=== PATIENT | female | born 1995 | race African-American/Black ===

== ENCOUNTER 2017-07-27 23:58 | Emergency (ER) | payer BC ==
[~2017-07-27] VITALS: Ht 152.4 cm; Wt 50.8 kg
[~2017-07-27 23:58] MED LIST: ACET325T96 PO
[2017-07-28 00:03] VITALS: Ht 152.4 cm; Wt 50.8 kg
[2017-07-28] MEDS ORDERED: SODIUM CHLORIDE 0.9% 1000ML 1,000 ML IV STA ×2 (00:23)
[2017-07-28 00:52] LABS: BASO % 0.1 %; BASO ABS # 0.01 K/uL (0-0.2); COMPLETE YES; EOS % 3.6 %; HEMATOCRIT 33.7 % (37-47); IG% 0.1 %; LYMPH % 39.6 %; LYMPH ABS # 2.84 K/uL (1.2-3.4); MEAN CELL VOLUME 73.7 fL (80-100); MEAN CORPUSCULAR HEMOGLOBIN 24.5 pg (25-34); MEAN CORPUSCULAR HGB CONC 33.2 g/dl (32-36); MEAN PLATELET VOLUME 8.7 fL (7.4-10.4); MONO % 8.5 %; NEUT % 48.1 %; PLATELET COUNT 358 K/uL (130-400); RED BLOOD COUNT 4.57 M/uL (4.2-5.4); WHITE BLOOD COUNT 7.18 K/uL (4.8-10.8)
[2017-07-28 01:17] LABS: BUN/CREATININE RATIO 13.4 (10-20); CALCIUM 8.9 mg/dl (8.5-10.1); CREATININE 0.83 mg/dl (0.60-1.20); MAGNESIUM 2.3 mg/dl (1.8-2.4); POTASSIUM 4.2 mmol/L (3.5-5.1)
[2017-07-28 01:22] LABS: ACETAMINOPHEN < 2 ug/ml (10-30)
[2017-07-28 01:27] LABS: THYROID STIMULATING HORMONE 1.86 uIu/ml (0.300-4.500)
--- NOTE | 2017-07-28 01:29 | DIAGNOSTIC IMAGING REPORT ---
CT SCAN OF THE BRAIN WITHOUT IV CONTRAST CLINICAL HISTORY: Change in mental status. COMPARISON STUDY: No priors. TECHNIQUE: Unenhanced axial CT scan of the brain is performed from the vertex to the skull base. A dose lowering technique was utilized adhering to the principles of ALARA. The examination is degraded by motion artifact. The skull base was scanned twice to improve image quality. CT DOSE: 691.05 mGy.cm FINDINGS: Brain parenchyma: The brain parenchyma is normal in appearance. There is no hemorrhage, mass effect, or evidence of acute territorial ischemia by CT criteria. Justin-white matter is preserved. No extra-axial fluid collection is seen. Ventricles, sulci, cisterns: Normal in configuration. Intracranial vasculature: The visualized intracranial vasculature at the skull base is normal in appearance. Calvarium: Unremarkable. Sinuses and mastoids: The visualized paranasal sinuses are clear. The mastoid air cells are well pneumatized. Orbits: The bony orbits are grossly intact. IMPRESSION: No acute intracranial abnormality. Electronically signed by: Fady Ibarra M.D. 07/28/2017 1:28 AM Dictated Date/Time: 07/28/2017 1:26 AM
--- NOTE | 2017-07-28 01:30 | DIAGNOSTIC IMAGING REPORT ---
SINGLE VIEW CHEST CLINICAL HISTORY: Syncope. FINDINGS: An AP, portable, upright chest radiograph is obtained. No prior studies are available for comparison at the time of dictation. The examination is degraded by portable technique and patient rotation. The cardiomediastinal silhouette is unremarkable. The lungs and pleural spaces are clear. No pneumothorax is seen. The bony thorax is grossly intact. IMPRESSION: No active disease in the chest. Electronically signed by: Fady Ibarra M.D. 07/28/2017 1:29 AM Dictated Date/Time: 07/28/2017 1:29 AM
[2017-07-28 02:49] LABS: BENZODIAZEPINE, URINE NEG (NEG); COCAINE,URINE NEG (NEG); PHENCYCLIDINE, URINE NEG (NEG)
--- NOTE | 2017-07-28 02:53 | EMERGENCY ROOM VISIT NOTE ---
History Report prepared by Marilynn: Shahnaz Garcia Under the Supervision of: Dr. Mario Ross M.D. 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 The patient was working at [employer] today since 1200. The patient reports that she had been having difficulty walking throughout her shift. She kept losing her balance. She states that she had no energy and eventually just lost consciousness. She hit her head in the fall. She had been feeling well this morning. She was not drinking today and denies any drug use. She denies any fever, chills, cough, congestion, nausea, vomiting, diarrhea, dysuria, vaginal discharge, room spinning, or back pain. She denies feeling stressed or depressed. She denies any thoughts of hurting herself. She states she has not been eating and drinking well recently. She has been sleeping around 6 hours a night. She works 2 jobs. She has a history of anemia. She is not on any medications. Her last menstrual period was 4 weeks ago. She denies any missed periods or chance of . She states that her menstrual period is not heavy. 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 Pt denies congestion, vaginal discharge, room spinning, being stressed or depressed, thoughts of hurting herself. Review of Systems See HPI for pertinent positives and negatives. A total of ten systems were reviewed and were otherwise negative. Past Medical & Surgical Medical Problems: (1) No active medical problems Family History No significant family history Social History Smoking Status: Never Smoker Alcohol Use: none Drug Use: cocaine Marital Status: single Housing Status: lives with roommate Occupation Status: [employer] Current/Historical Medications No Active Prescriptions or Reported Meds Allergies Coded Allergies: No Known Allergies (Unverified , 07/28/17) Physical Exam Vital Signs Date Time Temp Pulse Resp B/P (MAP) Pulse Ox O2 Delivery O2 Flow Rate FiO2 07/28/17 03:15 36.3 82 18 115/73 100 Room Air 07/28/17 02:32 84 18 111/76 100 Room Air 07/28/17 01:32 36.8 90 18 114/77 100 Room Air 07/28/17 00:03 36.8 96 18 138/109 100 Room Air Physical Exam GENERAL: Awake, drowsy-appearing, intermittent rigors, in no distress HENT: Normocephalic, atraumatic. Dry mucous membranes. EYES: Normal conjunctiva. Sclera non-icteric. NECK: Supple. No nuchal rigidity. FROM. No JVD. RESPIRATORY: Clear to auscultation. CARDIAC: Regular rate, normal rhythm. Extremities warm and well perfused. Pulses equal. ABDOMEN: Soft, non-distended. No tenderness to palpation. No rebound or guarding. No masses. RECTAL: Deferred. MUSCULOSKELETAL: Chest examination reveals no tenderness. The back is symmetrical on inspection without obvious abnormality. There is no CVA tenderness to palpation. No joint edema. LOWER EXTREMITIES: Calves are equal size bilaterally and non-tender. No edema. No discoloration. NEURO: Normal sensorium. No sensory or motor deficits noted. Cerebellar intact with [id number] SKIN: No rash or jaundice noted. Medical Decision & Procedures ER Provider Diagnostic Interpretation: Radiology results as stated below per my review and radiologist interpretation: SINGLE VIEW CHEST CLINICAL HISTORY: Syncope. FINDINGS: An AP, portable, upright chest radiograph is obtained. No prior studies are available for comparison at the time of dictation. The examination is degraded by portable technique and patient rotation. The cardiomediastinal silhouette is unremarkable. The lungs and pleural spaces are clear. No pneumothorax is seen. The bony thorax is grossly intact. IMPRESSION: No active disease in the chest. Electronically signed by: Fady Ibarra M.D. 07/28/2017 1:29 AM Dictated Date/Time: 07/28/2017 1:[address] SCAN OF THE BRAIN WITHOUT IV CONTRAST CLINICAL HISTORY: Change in mental status. COMPARISON STUDY: No priors. TECHNIQUE: Unenhanced axial CT scan of the brain is performed from the vertex to the skull base. A dose lowering technique was utilized adhering to the principles of ALARA. The examination is degraded by motion artifact. The skull base was scanned twice to improve image quality. CT DOSE: 691.05 mGy.cm FINDINGS: Brain parenchyma: The brain parenchyma is normal in appearance. There is no hemorrhage, mass effect, or evidence of acute territorial ischemia by CT criteria. Justin-white matter is preserved. No extra-axial fluid collection is seen. Ventricles, sulci, cisterns: Normal in configuration. Intracranial vasculature: The visualized intracranial vasculature at the skull base is normal in appearance. Calvarium: Unremarkable. Sinuses and mastoids: The visualized paranasal sinuses are clear. The mastoid air cells are well pneumatized. Orbits: The bony orbits are grossly intact. IMPRESSION: No acute intracranial abnormality. Electronically signed by: Fady Ibarra M.D. 07/28/2017 1:28 AM Dictated Date/Time: 07/28/2017 1:26 AM Laboratory Results 07/28/17 00:40 Red Blood Count 4.57, Mean Corpuscular Volume 73.7, Mean Corpuscular Hemoglobin 24.5, Mean Corpuscular Hemoglobin Concent 33.2, Mean Platelet Volume 8.7, Neutrophils (%) (Auto) 48.1, Lymphocytes (%) (Auto) 39.6, Monocytes (%) (Auto) 8.5, Eosinophils (%) (Auto) 3.6, Basophils (%) (Auto) 0.1, Neutrophils # (Auto) 3.45, Lymphocytes # (Auto) 2.84, Monocytes # (Auto) 0.61, Eosinophils # (Auto) 0.26, Basophils # (Auto) 0.01 07/28/17 00:40 Test 07/28/17 00:40 07/28/17 00:41 07/28/17 02:12 07/28/17 02:20 White Blood Count 7.18 K/uL (4.8-10.8) Red Blood Count 4.57 M/uL (4.2-5.4) Hemoglobin 11.2 g/dL (12.0-16.0) Hematocrit 33.7 % (37-47) Mean Corpuscular Volume 73.7 fL (80-100) Mean Corpuscular Hemoglobin 24.5 pg (25-34) Mean Corpuscular Hemoglobin Concent 33.2 g/dl (32-36) Platelet Count 358 K/uL (130-400) Mean Platelet Volume 8.7 fL (7.4-10.4) Neutrophils (%) (Auto) 48.1 % Lymphocytes (%) (Auto) 39.6 % Monocytes (%) (Auto) 8.5 % Eosinophils (%) (Auto) 3.6 % Basophils (%) (Auto) 0.1 % Neutrophils # (Auto) 3.45 K/uL (1.4-6.5) Lymphocytes # (Auto) 2.84 K/uL (1.2-3.4) Monocytes # (Auto) 0.61 K/uL (0.11-0.59) Eosinophils # (Auto) 0.26 K/uL (0-0.5) Basophils # (Auto) 0.01 K/uL (0-0.2) RDW Standard Deviation 44.1 fL (36.4-46.3) RDW Coefficient of Variation 16.3 % (11.5-14.5) Immature Granulocyte % (Auto) 0.1 % Immature Granulocyte # (Auto) 0.01 K/uL (0.00-0.02) Anion Gap 9.0 mmol/L (3-11) Est Creatinine Clear Calc Drug Dose 76.4 ml/min Estimated GFR () 116.0 Estimated GFR (Non- 100.1 BUN/Creatinine Ratio 13.4 (10-20) Calcium Level 8.9 mg/dl (8.5-10.1) Magnesium Level 2.3 mg/dl (1.8-2.4) Thyroid Stimulating Hormone (TSH) 1.860 uIu/ml (0.300-4.500) Salicylates Level < 1.7 mg/dl (2.8-20) Acetaminophen Level < 2 ug/ml (10-30) Ethyl Alcohol mg/dL < 3.0 mg/dl (0-3) Bedside Glucose 90 mg/dl (70-90) Urine Test NEG (NEG) Urine Opiates Screen NEG (NEG) Urine Methadone, Qualitative NEG (NEG) Urine Barbiturates NEG (NEG) Urine Phencyclidine (PCP) Level NEG (NEG) Ur Amphetamine/Methamphetamine NEG (NEG) MDMA (Ecstasy) Screen NEG (NEG) Urine Benzodiazepines Screen NEG (NEG) Urine Cocaine Metabolite NEG (NEG) Urine Marijuana (THC) NEG (NEG) Urine Color YELLOW Urine Appearance CLEAR (CLEAR) Urine pH 7.5 (4.5-7.5) Urine Specific [place] 1.017 (1.000-1.030) Urine Protein NEG (NEG) Urine Glucose (UA) NEG (NEG) Urine Ketones TRACE (NEG) Urine Occult Blood NEG (NEG) Urine Nitrite NEG (NEG) Urine Bilirubin NEG (NEG) Urine Urobilinogen NEG (NEG) Urine Leukocyte Esterase NEG (NEG) Laboratory results reviewed by me Medications Administered Medications (Trade) Dose Ordered Sig/Torey Route Start Time Stop Time Status Last Admin Dose Admin Sodium Chloride 1,000 ml @ 999 mls/hr Q1H1M STAT IV 07/28/17 00:23 07/28/17 01:23 DC 07/28/17 00:44 999 MLS/HR Sodium Chloride 1,000 ml @ 999 mls/hr Q1H1M STAT IV 07/28/17 00:23 07/28/17 01:23 DC 07/28/17 00:23 999 MLS/HR ECG Indication: weakness Rate (beats per minute): 92 Rhythm: normal sinus Findings: no acute ischemic change, other (normal axis, normal intervals, no hypertrophy) ED Course 0014: The patient was evaluated in room A4B. A complete history and physical exam was performed. 0023: NSS 1000 ml @ 999 mls/hr IV, NSS 1000 ml @ 999 mls/hr IV. 0220: I reevaluated the patient. I updated her on the results and treatment plan. She verbalized understanding and agreement. The patient will be discharged home. Medical Decision I reviewed the patient's past medical history, medications, and the nursing notes as described above. Differential diagnosis: dehydration, electrolyte abnormality, vasovagal vs orthostatic syncope, arrhythmia, intracranial hemorrhage, pneumonia, bronchitis , UTI, . 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 Arrival the patient is drowsy appearing but with a GCS of 15, no acute distress, afebrile stable vital signs. Neuro intact. Given the unclear history episode with head strike, workup done including CT head which was negative, CXR unremarkable, labs including WBC within normal limits and otherwise unremarkable. Patient feeling improved after IV fluids. The patient reports that she works 2 jobs and sleep 6 hours a night, which is likely contributing the patient's fatigue. UA negative but with ketones. Bedside echo unremarkable with no pericardia effusion. Grossly normal LV and RV function and size. IVC with greater than 50% collapse with respirations indicative of dehydration. Syncope most likely orthostatic given findings. Patient feeling improved after IVF. Plan for student health f/u. Patient will be picked up by her work a p supervisor. Findings and plan for follow-up reviewed patient. Patient agreeable and d/c'd per discharge instructions. Head Trauma GCS Score: 15 Medication Reconcilliation Current Medication List: was personally reviewed by me Blood Pressure Screening Patient's blood pressure: Normal blood pressure Blood pressure disposition: Did not require urgent referral Impression Primary Impression: Syncope and collapse Additional Impression: Dehydration Scribe Attestation The scribe's documentation has been prepared under my direction and personally reviewed by me in its entirety. I confirm that the note above accurately reflects all work, treatment, procedures, and medical decision making performed by me. Departure Information Dispostion Home / Self-Care Prescriptions No Active Prescriptions or Reported Meds Referrals No Doctor, Assigned (PCP) Patient Instructions Fainting (Syncope) - [facility], [facility] Additional Instructions Please follow up with the student health clinic on Sunday for re-evaluation. Your symptoms were likely precipitated by mild dehydration in the setting of your long work hours. Otherwise, your exam, EKG, chest xray, CT scan of your head, and lab results did not show signs of an emergent condition at this time. Drink plenty of fluids to ensure hydration. Return to the emergency department for worsening symptoms as described in the accompanying instructions. Problem Qualifiers
[2017-07-28 02:56] LABS: URINE APPEARANCE CLEAR (CLEAR); URINE BILIRUBIN NEG (NEG); URINE COLOR YELLOW; URINE NITRITE NEG (NEG); URINE PH 7.5 (4.5-7.5); URINE SPECIFIC GRAVITY 1.017 (1.000-1.030); UROBILINOGEN NEG (NEG); ZZUR CULT IF INDIC CLEAN CATCH NO
[2017-07-28 03:05] LABS: MANUAL MICROSCOPIC REQUIRED? NO; REVIEW REQ? NO
[2017-07-28 03:15] VITALS: BP 115/73; PULSE 82; TEMP 36.3; O2SAT 100
== END 2017-07-28 03:43 | disposition home or self-care (01) ==
LOC: EDBD 23:58 → C.EDA 23:59
DX: R55 Syncope and collapse (principal); E86.0 Dehydration